=== PATIENT | female | born 1940 | race Caucasian/White ===

== ENCOUNTER → 2017-02-26 | Outpatient (CLI) | payer MEDICARE | END | disposition home or self-care (01) | LOC: CFH 10:17 | PROVIDERS: ATTEND Genetic Counselor, MS | DX: Z13.820 Encounter for screening for osteoporosis (principal); M85.80 Other specified disorders of bone density and structure, unspecified site; M81.0 Age-related osteoporosis without current pathological fracture | CPT/HCPCS: 77080 ==

== ENCOUNTER → 2017-08-31 | Outpatient (CLI) | payer MEDICARE | END | disposition home or self-care (01) | LOC: CFH 07:58 → EDSTATUS 08:30 | PROVIDERS: ATTEND Genetic Counselor, MS | DX: Z12.31 Encounter for screening mammogram for malignant neoplasm of breast (principal) | CPT/HCPCS: 77063; G0202 ==

== ENCOUNTER → 2017-10-21 | Outpatient (CLI) | payer MEDICARE | END | disposition home or self-care (01) | LOC: CFH 09:30 | PROVIDERS: ATTEND Nurse Practitioner | DX: J44.9 Chronic obstructive pulmonary disease, unspecified (principal); R91.8 Other nonspecific abnormal finding of lung field; I25.10 Atherosclerotic heart disease of native coronary artery without angina pectoris; Z87.891 Personal history of nicotine dependence | CPT/HCPCS: 71250 ==

== ENCOUNTER 2018-06-26 09:53 | Emergency (ER) | payer MEDICARE ==
[~2018-06-26] VITALS: Ht 160 cm; Wt 80.0 kg
[2018-06-26] MEDS ORDERED: methylPREDNISolone SOD SUCC 125 MG/2 ML IVP ONE (10:00)
[2018-06-26] MEDS ORDERED: ALBUTEROL/IPRATROPIUM 2.5MG/0.5MG, 3 ML ONE (10:06)
[2018-06-26 10:29] LABS: BASOPHILS # (AUTO) 0.01 x10^3/uL (0-0.1); BASOPHILS % (AUTO) 0 % (0-1); EOSINOPHILS # (AUTO) 0.02 x10^3/uL (0-0.4); EOSINOPHILS % (AUTO) 0 % (1-7); LYMPHOCYTES # (AUTO) 1.16 x10^3/uL (1-3.4); LYMPHOCYTES % (AUTO) 10 % (22-44); MD NO; MEAN CORPUSCULAR HGB CONC 34.2 g/dL (32.4-35.8); MEAN CORPUSCULAR VOLUME 87.9 fL (80-100); MEAN PLATELET VOLUME 8.8 fL (7.4-10.4); MONOCYTES # (AUTO) 0.52 x10^3/uL (0.2-0.8); MONOCYTES % (AUTO) 4 % (2-9); NEUTROPHILS # (AUTO) 10.09 x10^3/uL (1.8-6.8); NEUTROPHILS % (AUTO) 86 % (42-75); PLATELET COUNT 136 x10^3/uL (130-400); RED BLOOD COUNT 4.88 x10^6/uL (3.82-5.3); RED CELL DISTRIBUTION WIDTH 13.4 % (9.6-15.2)
[2018-06-26] MEDS ORDERED: methylPREDNISolone SOD SUCC 125 MG/2 ML ONE (10:35)
[2018-06-26 10:41] LABS: ALBUMIN 3.7 g/dL (3.4-5.0); ANION GAP 7 mmol/L (5-15); CALCIUM 8.7 mg/dL (8.5-10.1); CHLORIDE 105 mmol/L (98-107); CREATININE 1.04 mg/dL (0.55-1.02)
[2018-06-26] MEDS ORDERED: LORazepam 0.5MG TABLET ONE (10:48)
[2018-06-26] MEDS ORDERED: LORazepam 0.5MG TABLET PO ONE (11:00)
[2018-06-26 13:20] VITALS: BP 159/63
== END 2018-06-26 13:23 | disposition home or self-care (01) ==
LOC: ED 11:05
DX: J43.9 Emphysema, unspecified (principal); J15.8 Pneumonia due to other specified bacteria; B96.89 Other specified bacterial agents as the cause of diseases classified elsewhere; Z87.891 Personal history of nicotine dependence
CPT/HCPCS: 36415; 71045; 80048; 82040; 83605; 84145; 85025; 87040; 93005; 94640; 96374; 99285; J2930

== ENCOUNTER 2018-12-08 21:38 | Inpatient (IN) | payer MEDICARE ==
[~2018-12-08] VITALS: Ht 160 cm; Wt 72.7 kg
--- NOTE | 2018-12-08 21:52 | NUR ---
Pt brought in by EMS with c/o n/v/d prior to arrival after eating a frozen microwavable hamburger with pickles. Pt recieved medicaiton on route that brought her 10/10 abdominal pain down to 3/10 per EMS. Pt's son at bedside. Pt has 18 g PIV in left AC prior to arrival. Pt's son at bedside. All safety measures in place. NADN. Pt connected to all monitors. Warm blankets provided for comfort measures.
[2018-12-08] MEDS ORDERED: SODIUM CHLORIDE FLUSH 10ML SYR IVF ONE (22:00)
[2018-12-08] MEDS ORDERED: PRIM50TA PO (22:22)
[2018-12-08] MEDS ORDERED: ROFL500T PO (22:22)
[2018-12-08] MEDS ORDERED: OMEP-110 PO (22:22)
[2018-12-08] MEDS ORDERED: LEVO50TA5 PO (22:22)
[2018-12-08] MEDS ORDERED: ATOR40TA PO (22:22)
[2018-12-08] MEDS ORDERED: MONT10TA9 PO (22:22)
[2018-12-08] MEDS ORDERED: NORT25CA78 PO (22:22)
[2018-12-08] MEDS ORDERED: TIOT18CA INH (22:28)
[2018-12-08] MEDS ORDERED: ALBU18HF INH (22:28)
[2018-12-08] MEDS ORDERED: BUDE10.2 INH (22:28)
[2018-12-08 22:29] LABS: BASOPHILS # (AUTO) 0.01 x10^3/uL (0-0.1); BASOPHILS % (AUTO) 0 % (0-1); EOSINOPHILS # (AUTO) 0.14 x10^3/uL (0-0.4); EOSINOPHILS % (AUTO) 1 % (1-7); LYMPHOCYTES % (AUTO) 4 % (22-44); MD NO; MEAN CORPUSCULAR HEMOGLOBIN 30.7 pg (27.0-34.8); MEAN CORPUSCULAR HGB CONC 34.6 g/dL (32.4-35.8); MEAN CORPUSCULAR VOLUME 88.8 fL (80-100); MEAN PLATELET VOLUME 8.2 fL (7.4-10.4); MONOCYTES # (AUTO) 0.86 x10^3/uL (0.2-0.8); MONOCYTES % (AUTO) 6 % (2-9); NEUTROPHILS % (AUTO) 89 % (42-75); PLATELET COUNT 173 x10^3/uL (130-400); RED CELL DISTRIBUTION WIDTH 12.9 % (9.6-15.2)
[2018-12-08 22:43] LABS: ALBUMIN 4.1 g/dL (3.4-5.0); ANION GAP 8 mmol/L (5-15); CALCIUM 9.4 mg/dL (8.5-10.1); CHLORIDE 107 mmol/L (98-107)
[2018-12-08 22:46] LABS: ALANINE AMINOTRANSFERASE 39 U/L (12-78); ALKALINE PHOSPHATASE 93 U/L (45-117); BILIRUBIN,TOTAL 0.4 mg/dL (0.2-1.0); CREATININE 1.33 mg/dL (0.55-1.02); TOTAL PROTEIN 7.6 g/dL (6.4-8.2)
[2018-12-08 23:00] LABS: CULTURE INDICATED? YES; MICROSCOPIC INDICATED
[2018-12-08] MEDS ORDERED: OMNIPAQUE 350 MG/ML, 100ML BOTTLE ONE (23:08)
[2018-12-08] MEDS ORDERED: CEFTRIAXONE PMX 1GM/50ML 50 ML ONE (23:55)
[2018-12-09] MEDS ORDERED: CEFTRIAXONE PMX 1GM/50ML 50 ML IV ONE
[2018-12-09] MEDS ORDERED: METRONIDAZOLE PMX 500MG/100ML 100 ML IV ONE
[2018-12-09] MEDS ORDERED: CEFTRIAXONE PMX 1GM/50ML 50 ML IV SCH
[2018-12-09] MEDS ORDERED: ACETAMINOPHEN 325 MG TABLET PO PRN
[2018-12-09] MEDS ORDERED: ONDANSETRON 2MG/ML, 2ML IVPush PRN
[2018-12-09] MEDS ORDERED: KETOROLAC 30 MG/1 ML IV PRN
--- NOTE | 2018-12-09 00:04 | NUR ---
Provided report to [facility]. All questions answered. Pt ready to transfer to floor after lab finishes drawing for blood cultures.
--- NOTE | 2018-12-09 00:19 | NUR ---
Pt transfered to floor from ED and left with all personal belongings. IV medicaitons infusing per [facility] on transfer
[2018-12-09] MEDS: SODIUM CHLORIDE 0.9% 1,000 ML IV SCH ×2 (00:31→14:19)
[2018-12-09] MEDS: METRONIDAZOLE PMX 500MG/100ML 100 ML IV SCH ×3 (00:35→17:20)
[2018-12-09] MEDS: HEPARIN 5,000 UNITS/ML, 1ML SQ SCH ×3 (00:41→17:20)
[2018-12-09 01:03] VITALS: BP 144/94
[2018-12-09] MEDS ORDERED: ALBUTEROL SULFATE 2.5 MG/3 ML NPPB PRN (04:00)
[2018-12-09 05:25] LABS: BASOPHILS % (AUTO) 0 % (0-1); EOSINOPHILS # (AUTO) 0.04 x10^3/uL (0-0.4); EOSINOPHILS % (AUTO) 0 % (1-7); LYMPHOCYTES # (AUTO) 1.05 x10^3/uL (1-3.4); LYMPHOCYTES % (AUTO) 11 % (22-44); MD NO; MEAN CORPUSCULAR HEMOGLOBIN 30.2 pg (27.0-34.8); MEAN CORPUSCULAR HGB CONC 33.5 g/dL (32.4-35.8); MEAN CORPUSCULAR VOLUME 90.4 fL (80-100); MEAN PLATELET VOLUME 8.6 fL (7.4-10.4); MONOCYTES # (AUTO) 0.67 x10^3/uL (0.2-0.8); MONOCYTES % (AUTO) 7 % (2-9); NEUTROPHILS # (AUTO) 7.68 x10^3/uL (1.8-6.8); NEUTROPHILS % (AUTO) 81 % (42-75); PLATELET COUNT 170 x10^3/uL (130-400); RED BLOOD COUNT 4.14 x10^6/uL (3.82-5.3); RED CELL DISTRIBUTION WIDTH 12.7 % (9.6-15.2)
[2018-12-09 05:31] LABS: ALANINE AMINOTRANSFERASE 30 U/L (12-78); ALBUMIN 3.3 g/dL (3.4-5.0); ANION GAP 6 mmol/L (5-15); CALCIUM 8.1 mg/dL (8.5-10.1); CHLORIDE 108 mmol/L (98-107); CREATININE 1.18 mg/dL (0.55-1.02)
[2018-12-09 05:33] LABS: ALKALINE PHOSPHATASE 74 U/L (45-117); BILIRUBIN,TOTAL 0.4 mg/dL (0.2-1.0); TOTAL PROTEIN 6.2 g/dL (6.4-8.2)
[2018-12-09] MEDS ORDERED: IPRATROPIUM 0.5 MG/2.5 ML INHA NPPB SCH (06:00)
[2018-12-09] MEDS ORDERED: ALBUTEROL/IPRATROPIUM 2.5MG/0.5MG, 3 ML ONE (06:37)
[2018-12-09] MEDS: IPRATROPIUM 0.5 MG/2.5 ML INHA NPPB SCH ×3 (06:41→21:40)
[2018-12-09 07:39] VITALS: BP 92/43
[2018-12-09 08:02] VITALS: BP 92/58
[2018-12-09] MEDS: PRIMIDONE 50 MG TABLET PO SCH (08:06)
[2018-12-09] MEDS: OMEPRAZOLE 20 MG CAPSULE.DR PO SCH (08:07)
[2018-12-09] MEDS: NORTRIPTYLINE 25 MG CAPSULE PO SCH (08:07)
[2018-12-09] MEDS: LEVOTHYROXINE 50 MCG TABLET PO SCH (08:08)
[2018-12-09] MEDS: MONTELUKAST 10 MG TABLET PO SCH (08:08)
[2018-12-09] MEDS ORDERED: TEMPLATE NON-FORMULARY MED. (Tiotropium Bromide** (Spiriva**) 18 MCG) INH SCH (09:00)
[2018-12-09] MEDS: BUDESONIDE 0.5 MG/2 ML INHA NPPB SCH ×2 (09:00→21:40)
[2018-12-09] MEDS: ROFLUMILAST 500 MG HOMEMEDPO SCH (09:00)
[2018-12-09] MEDS ORDERED: SODIUM CHLORIDE 0.9% 1,000ML IVBOLUS ONE (10:00)
[2018-12-09 14:22] VITALS: BP 121/66
[2018-12-09 19:21] VITALS: BP 124/72
[2018-12-09] MEDS: ATORVASTATIN 40 MG TABLET PO SCH ×2 (19:37)
[2018-12-10] MEDS: HEPARIN 5,000 UNITS/ML, 1ML SQ SCH ×2 (00:01→08:19)
[2018-12-10] MEDS: METRONIDAZOLE PMX 500MG/100ML 100 ML IV SCH ×2 (00:02→08:19)
[2018-12-10] MEDS: SODIUM CHLORIDE 0.9% 1,000 ML IV SCH ×2 (00:02→12:06)
[2018-12-10 00:55] VITALS: BP 110/65
[2018-12-10] MEDS: IPRATROPIUM 0.5 MG/2.5 ML INHA NPPB SCH ×2 (03:00→13:04)
[2018-12-10 07:00] VITALS: BP 115/74
[2018-12-10] MEDS: OMEPRAZOLE 20 MG CAPSULE.DR PO SCH (08:21)
[2018-12-10] MEDS: NORTRIPTYLINE 25 MG CAPSULE PO SCH (08:21)
[2018-12-10] MEDS: PRIMIDONE 50 MG TABLET PO SCH (08:22)
[2018-12-10] MEDS: LEVOTHYROXINE 50 MCG TABLET PO SCH (08:22)
[2018-12-10] MEDS: MONTELUKAST 10 MG TABLET PO SCH (08:22)
[2018-12-10] MEDS: ROFLUMILAST 500 MG HOMEMEDPO SCH (09:00)
[2018-12-10] MEDS: BUDESONIDE 0.5 MG/2 ML INHA NPPB SCH (09:00)
[2018-12-10 11:35] LABS: ANION GAP 4 mmol/L (5-15); CALCIUM 8.1 mg/dL (8.5-10.1); CHLORIDE 113 mmol/L (98-107); CREATININE 0.78 mg/dL (0.55-1.02)
[2018-12-10 13:56] VITALS: BP 126/68
[2018-12-10] MEDS ORDERED: METR500T PO (14:44)
[2018-12-10] MEDS ORDERED: CEFD300C37 PO (14:44)
== END 2018-12-10 16:20 | disposition home or self-care (01) | DRG 682 ==
LOC: ED 23:17 → EDIP 23:57 → 3NW 12-09 00:20
PROVIDERS: ADMIT Internal Medicine; ATTEND Internal Medicine
PROC: 0T9B70Z Drainage of Bladder with Drainage Device, Via Natural or Artificial Opening (ICD-10-PCS; principal; 2018-12-08)
DX: N17.9 Acute kidney failure, unspecified (principal); R65.11 Systemic inflammatory response syndrome (SIRS) of non-infectious origin with acute organ dysfunction; J96.10 Chronic respiratory failure, unspecified whether with hypoxia or hypercapnia; K57.92 Diverticulitis of intestine, part unspecified, without perforation or abscess without bleeding; E78.5 Hyperlipidemia, unspecified; J43.9 Emphysema, unspecified; Z66 Do not resuscitate; E03.9 Hypothyroidism, unspecified; Z87.01 Personal history of pneumonia (recurrent); Z87.891 Personal history of nicotine dependence; Z90.710 Acquired absence of both cervix and uterus
CPT/HCPCS: 36415; 71250; 74177; 80048; 80053; 81001; 83605; 83690; 84443; 85025; 87040; 87086; 93005; 94640; 96374; G0378; J0696; J1644; J7613; J7626; J7644; Q9967; J7030

== ENCOUNTER → 2019-05-23 | Outpatient (CLI) | payer MEDICARE ==
[~2019-05-23] MED LIST: ALBU18HF INH; ATOR40TA PO; BUDE10.2 INH; CEFD300C37 PO; LEVO50TA5 PO; METR500T PO; MONT10TA9 PO; NORT25CA78 PO; OMEP-110 PO; PRIM50TA PO; ROFL500T PO; TIOT18CA INH
== END | disposition home or self-care (01) ==
LOC: CFH 08:39
PROVIDERS: ATTEND Registered Nurse
DX: R91.8 Other nonspecific abnormal finding of lung field (principal); J43.9 Emphysema, unspecified; I25.10 Atherosclerotic heart disease of native coronary artery without angina pectoris
CPT/HCPCS: 71250

== ENCOUNTER 2019-06-05 08:19 | Day surgery (SDC) | payer MEDICARE ==
[~2019-06-05] VITALS: Ht 157.5 cm; Wt 65.5 kg
[2019-06-05 09:09] VITALS: BP 134/75
[2019-06-05] MEDS ORDERED: LIDOCAINE-MPF 1%, 5ML ONE (10:00)
[2019-06-05] MEDS ORDERED: MIDAZOLAM 1 MG/ML, 5ML ONE ×2 (10:03)
[2019-06-05] MEDS ORDERED: NALOXONE 1 MG/ML, 2ML ONE (10:03)
[2019-06-05] MEDS ORDERED: FLUMAZENIL 0.1 MG/1 ML, 5ML ONE (10:03)
[2019-06-05] MEDS ORDERED: FENTANYL PF 100 MCG/2ML ONE (10:03)
== END 2019-06-05 10:35 | disposition home or self-care (01) ==
LOC: OUT 08:19
PROVIDERS: ATTEND Registered Nurse
DX: R91.1 Solitary pulmonary nodule (principal); Z53.8 Procedure and treatment not carried out for other reasons; J44.9 Chronic obstructive pulmonary disease, unspecified; J96.11 Chronic respiratory failure with hypoxia; E78.00 Pure hypercholesterolemia, unspecified; Z99.81 Dependence on supplemental oxygen; Z79.899 Other long term (current) drug therapy; Z87.891 Personal history of nicotine dependence; Z96.642 Presence of left artificial hip joint; Z90.710 Acquired absence of both cervix and uterus; Z90.79 Acquired absence of other genital organ(s); Z83.3 Family history of diabetes mellitus; Z80.9 Family history of malignant neoplasm, unspecified
CPT/HCPCS: J2250 ×2; J3010; J2310

== ENCOUNTER 2019-06-14 07:08 | Day surgery (SDC) | payer MEDICARE ==
[~2019-06-14] VITALS: Ht 160 cm; Wt 65.0 kg
[2019-06-14] MEDS ORDERED: FENTANYL PF 100 MCG/2ML ONE (07:48)
[2019-06-14] MEDS ORDERED: MIDAZOLAM 1 MG/ML, 5ML ONE ×2 (07:48)
[2019-06-14] MEDS ORDERED: FLUMAZENIL 0.1 MG/1 ML, 5ML ONE (07:49)
[2019-06-14] MEDS ORDERED: NALOXONE 1 MG/ML, 2ML ONE (07:49)
[2019-06-14] MEDS ORDERED: SODIUM CHLORIDE 0.9% 1,000 ML IV SCH (07:50)
[2019-06-14 08:15] VITALS: BP 133/78
[2019-06-14] MEDS ORDERED: PROP40TA PO (08:22)
[2019-06-14] MEDS ORDERED: LISI-170 PO (08:22)
[2019-06-14] MEDS ORDERED: BUDE10.22 INH (08:24)
== END 2019-06-14 11:45 | disposition home or self-care (01) ==
LOC: OUT 07:08
PROVIDERS: ATTEND Registered Nurse
DX: J98.4 Other disorders of lung (principal); J43.9 Emphysema, unspecified; Z99.81 Dependence on supplemental oxygen
CPT/HCPCS: 32405; 71045; 77012; 88305; 88333; 88341; 88342; 99156; 99157; J2250; J3010; J7030; J2310

== ENCOUNTER 2019-06-21 12:32 | Outpatient (CLI) | payer MEDICARE ==
[~2019-06-21 12:32] MED LIST changes: +BUDE10.22 INH; +LISI-170 PO; +PROP40TA PO
== END 2019-06-21 23:59 | disposition home or self-care (01) ==
LOC: CFH 12:32
PROVIDERS: ATTEND Genetic Counselor, MS
DX: Z12.31 Encounter for screening mammogram for malignant neoplasm of breast (principal); M85.89 Other specified disorders of bone density and structure, multiple sites; Z78.0 Asymptomatic menopausal state
CPT/HCPCS: 77080; 77067

== ENCOUNTER → 2019-12-13 | Outpatient (CLI) | payer MEDICARE | END | disposition home or self-care (01) | LOC: CFH 12:21 | PROVIDERS: ATTEND Registered Nurse | DX: J96.11 Chronic respiratory failure with hypoxia (principal); J43.8 Other emphysema; R92.8 Other abnormal and inconclusive findings on diagnostic imaging of breast; I70.0 Atherosclerosis of aorta; M51.34 Other intervertebral disc degeneration, thoracic region; Z87.891 Personal history of nicotine dependence | CPT/HCPCS: 71250 ==

== ENCOUNTER → 2020-07-11 | Outpatient (CLI) | payer MEDICARE ==
[~2020-07-11] MED LIST changes: +MONT10TA11 PO; -MONT10TA9 PO
== END | disposition home or self-care (01) ==
LOC: CFH 10:00
PROVIDERS: ATTEND Genetic Counselor, MS
DX: Z12.31 Encounter for screening mammogram for malignant neoplasm of breast (principal)
CPT/HCPCS: 77063; 77067

== ENCOUNTER → 2021-03-25 | Outpatient (CLI) | payer MEDICARE ==
[~2021-03-25] MED LIST changes: -MONT10TA11 PO; +MONT10TA17 PO
== END | disposition home or self-care (01) ==
LOC: CFH 10:47
PROVIDERS: ATTEND Registered Nurse
DX: Z12.2 Encounter for screening for malignant neoplasm of respiratory organs (principal); J43.2 Centrilobular emphysema; I25.10 Atherosclerotic heart disease of native coronary artery without angina pectoris; R91.8 Other nonspecific abnormal finding of lung field; Z87.891 Personal history of nicotine dependence
CPT/HCPCS: 71271